=== PATIENT | male | born 1985 | race American Indian/Alaskan Native ===

== ENCOUNTER 2022-03-08 12:43 | Emergency (ER) | payer SELFPAY ==
[2022-03-08 13:56] VITALS: BP 139/77
[2022-03-08] MEDS ORDERED: ACETAMINOPHEN 500 MG TAB PO ONE (13:58)
--- NOTE | 2022-03-09 09:15 | Electrocardiograph Report ---
[facility] Test Date: 2022-03-08 Test Time: 13:51:52 Pat Name: YOUNG BRAMBILA Department: Room: Gender: M Manager [place]: 0000 : 1985 Requested By: CHLOÉ MANN Order Number: [id number] Reading MD: Franc Minor Measurements Intervals [place] Rate: 115 P: 77 TN: 137 QRS: -18 QRSD: 92 T: 60 QT: 371 QTc: 514 Interpretive Statements Sinus tachycardia Right atrial enlargement ST elev, probable normal early repol pattern No previous ECG available for comparison Electronically Signed On 03-09-2022 9:14:58 EDT by Franc Minor
== END 2022-03-09 01:40 | disposition home or self-care (01) ==
LOC: ED 12:43
DX: R05.9 Cough, unspecified (principal); Z53.21 Procedure and treatment not carried out due to patient leaving prior to being seen by health care provider
CPT/HCPCS: 93005